=== PATIENT | male | born 1960 | race Caucasian/White ===

== ENCOUNTER → 2018-01-23 | Outpatient (CLI) | payer OTHER | END | disposition home or self-care (01) | LOC: RAH 16:43 | PROVIDERS: ATTEND Nurse Practitioner Family | DX: Z01.810 Encounter for preprocedural cardiovascular examination (principal) | CPT/HCPCS: 71046 ==

== ENCOUNTER 2022-11-02 07:04 | Day surgery (SDC) | payer OTHER ==
[2022-10-31 09:41] LABS: BASOPHILS % (AUTO) 1.5 % (0.0-5.0); EOSINOPHILS % (AUTO) 2.1 % (0.0-8.0); HEMATOCRIT 40.9 % (42-54); LYMPHOCYTES % (AUTO) 29.2 % (21.0-51.0); MEAN CORPUSCULAR HEMOGLOBIN 32.1 pg (27.0-33.0); MEAN CORPUSCULAR HGB CONC 33.7 g/dL (32.0-36.0); MEAN CORPUSCULAR VOLUME 95.1 fL (79-99); NEUTROPHILS % (AUTO) 58.7 % (40.0-77.0); PLATELET COUNT (AUTO) 228 K/uL (130-400); RED CELL DISTRIBUTION WIDTH 13.6 % (11.0-15.5); WHITE BLOOD COUNT (AUTO) 6.1 K/uL (4.8-10.8)
[2022-10-31 09:48] LABS: ALBUMIN 3.4 g/dL (3.5-5.0); CARBON DIOXIDE 28 mmol/L (21-32); CHLORIDE 103 mmol/L (101-111); CREATININE 0.9 mg/dL (0.5-1.5); GLOMERULAR FILTR. RATE CALC 97 mL/min (>90); GLUCOSE,RANDOM 135 mg/dL (70-105); POTASSIUM 4.6 mmol/L (3.5-5.1); SODIUM SERUM 136 mmol/L (136-145); UREA NITROGEN, BLOOD 15 mg/dL (7-18)
[2022-10-31 09:53] LABS: CRP QUANTITATIVE < 2.00 mg/L (0.00-9.0); INR 1.06 (0.85-1.15); PROTHROMBIN TIME 11.5 SEC (9.6-11.6)
[2022-10-31 09:54] LABS: PARTIAL THROMBOPLASTIN TIME 32.2 SEC (26.3-35.5)
[2022-10-31 10:10] VITALS: BP 120/81
[2022-11-02] VITALS (16 sets, daily range): BP systolic 107–139; BP diastolic 63–80
[~2022-11-02] VITALS: Ht 172.7 cm; Wt 116.1 kg
[~2022-11-02 07:04] MED LIST: ALLO100T PO; APIX5TAB PO; DILT120C92 PO; METF-446 PO; METO200T49 PO; OMEG100033 PO; OMEP40CA21 PO
[2022-11-02] MEDS ORDERED: 0.9%NACL 1000ML 1,000 ML IV ONE (07:16)
[2022-11-02] MEDS ORDERED: CEFAZOLIN SODIUM 2 GM VIAL ONE (07:16)
[2022-11-02] MEDS ORDERED: LIDOCAINE PF 100MG/5ML (2%) SYRINGE 5ML ONE (08:50)
[2022-11-02] MEDS ORDERED: ONDANSETRON 4MG INJ ONE (08:51)
[2022-11-02] MEDS ORDERED: DEXAMETHASONE SOD PHOSPHATE 10MG/ML 1ML VIAL ONE (08:51)
[2022-11-02] MEDS ORDERED: NEOSTIGMINE 5MG/5ML SYR IV ONE (08:52)
[2022-11-02] MEDS ORDERED: MIDAZOLAM HCL 1 MG/ML 2ML VIAL ONE (08:52)
[2022-11-02] MEDS ORDERED: GLYCOPYRROLATE 1 MG/5 ML SYRINGE ONE (08:52)
[2022-11-02] MEDS ORDERED: PROPOFOL 10 MG/ML 20ML VIAL IV ONE (08:52)
[2022-11-02] MEDS ORDERED: ROCURONIUM 10MG/1ML SYR 10 MG/ML ML ONE ×3 (08:52→12:18)
[2022-11-02] MEDS ORDERED: FENTANYL CITRATE PF 50 MCG/1 ML 2ML VIAL ONE ×2 (08:53→10:25)
[2022-11-02] MEDS ORDERED: KETOROLAC 30MG VIAL (30MG/ML) ONE (08:53)
[2022-11-02] MEDS ORDERED: ROPIVACAINE 0.5% 5MG/ML 30ML IJ ONE (08:58)
[2022-11-02] MEDS ORDERED: EPINEPHRINE PF 1MG (1:1,000) 1 MG/ML AMP ONE (09:01)
[2022-11-02] MEDS ORDERED: CEFAZOLIN SODIUM 2 GM VIAL IVPB ONE (09:21)
[2022-11-02] MEDS ORDERED: HYDR-4060 PO (13:30)
== END 2022-11-02 14:58 | disposition home or self-care (01) ==
LOC: DAH 07:04
PROVIDERS: ATTEND Student in an Organized Health Care Education/Training Program
DX: M75.122 Complete rotator cuff tear or rupture of left shoulder, not specified as traumatic (principal); Z20.822 Contact with and (suspected) exposure to COVID-19; M19.012 Primary osteoarthritis, left shoulder; M75.22 Bicipital tendinitis, left shoulder; M65.812 Other synovitis and tenosynovitis, left shoulder; M94.212 Chondromalacia, left shoulder; M75.42 Impingement syndrome of left shoulder; I10 Essential (primary) hypertension; E11.9 Type 2 diabetes mellitus without complications; E78.5 Hyperlipidemia, unspecified; G47.30 Sleep apnea, unspecified; K21.9 Gastro-esophageal reflux disease without esophagitis; M10.9 Gout, unspecified; Z79.01 Long term (current) use of anticoagulants; Z79.899 Other long term (current) drug therapy; Z90.49 Acquired absence of other specified parts of digestive tract; Z98.890 Other specified postprocedural states; Z90.81 Acquired absence of spleen; Z82.49 Family history of ischemic heart disease and other diseases of the circulatory system; Z86.010 Personal history of colon polyps; Z72.89 Other problems related to lifestyle; Z79.84 Long term (current) use of oral hypoglycemic drugs
CPT/HCPCS: 82040; 80048; 85025; 85610; 85730; 84134; 86140; 87426; 36415; 29827; 29828; 64415; 29826; 82948 ×2; A4663; J7030 ×2; A4565; A4452; J3010 ×2; J3490; J1100; J2710; J2001; J0171; J2250; J2704; J2405; J1885; J2795; J0690 ×2; A6223; A4649 ×2; C1713 ×2; A5120; A4215; A4223; A4222; A4221; A4600

== ENCOUNTER 2023-06-27 03:33 | Emergency (ER) | payer OTHER ==
[~2023-06-27 03:33] MED LIST changes: +DILT120C78 PO; -DILT120C92 PO; +HYDR-4060 PO
[2023-06-27] MEDS ORDERED: GABAPENTIN 300 MG CAPSULE PO SCH (04:00)
[2023-06-27] MEDS ORDERED: MORPHINE 2 MG SYG IVP ONE (04:00)
[2023-06-27] MEDS ORDERED: CYCLOBENZAPRINE HCL 10 MG TABLET PO ONE (04:00)
[2023-06-27] MEDS ORDERED: HYDROMORPHONE 1 MG INJ IVP ONE (04:30)
[2023-06-27] MEDS ORDERED: GABA300C PO (05:40)
[2023-06-27] MEDS ORDERED: PRED20TA3 PO (05:40)
[2023-06-27] MEDS ORDERED: IBUP-1493 PO (05:40)
[2023-06-27] MEDS ORDERED: TRAM50TA4 PO (05:42)
[2023-06-27 07:01] VITALS: BP 124/74; PULSE 80; RESP 16; O2SAT 98
== END 2023-06-27 07:02 | disposition home or self-care (01) ==
LOC: EDH 03:33
DX: M54.12 Radiculopathy, cervical region (principal); I48.91 Unspecified atrial fibrillation
CPT/HCPCS: 99285; 96374; 72125; 96375; J1170; J2270

== ENCOUNTER 2023-09-04 23:11 | Emergency (ER) | payer OTHER ==
[~2023-09-04] VITALS: Ht 172.7 cm; Wt 114.8 kg
[~2023-09-04 23:11] MED LIST changes: +GABA300C PO; +IBUP-1493 PO; +PRED20TA3 PO; +TRAM50TA4 PO
[2023-09-04 23:14] VITALS: BP 125/82; PULSE 108; RESP 20
[2023-09-04 23:42] LABS: ADD UA MICROSCOPIC YES; APPEARANCE,URINE CLEAR (CLEAR); BILIRUBIN,URINE NEGATIVE (NEGATIVE); COLOR,URINE LIGHT-YELLOW (YELLOW); GLUCOSE, URINE (UA) >=1000 mg/dL (NEGATIVE); KETONES,URINE NEGATIVE (NEGATIVE); LEUKOCYTE ESTERASE ,URINE NEGATIVE Leu/uL (NEGATIVE); NITRATE,URINE NEGATIVE (NEGATIVE); OCCULT BLOOD,URINE NEGATIVE (NEGATIVE); PH,URINE 5.5 (5.0-8.0); PROTEIN,URINE 10 mg/dL (NEGATIVE); UROBILINOGEN,URINE 0.2 mg/dL (0.2-1.0)
[2023-09-04 23:43] LABS: MUCUS,URINE RARE LPF (None Seen); RBC,URINE 0-1 /HPF (0-1); WBC,URINE 0-1 /HPF (0-1)
[2023-09-05] MEDS ORDERED: IBUPROFEN 800 MG TAB ONE (00:18)
[2023-09-05] MEDS ORDERED: CYCLOBENZAPRINE HCL 10 MG TABLET ONE (00:19)
[2023-09-05] MEDS ORDERED: IBUP-1493 PO (00:23)
[2023-09-05] MEDS ORDERED: CYCL-309 PO (00:23)
[2023-09-05] MEDS ORDERED: CYCLOBENZAPRINE HCL 10 MG TABLET PO ONE (00:30)
[2023-09-05] MEDS ORDERED: IBUPROFEN 800 MG TAB PO ONE (00:30)
[2023-09-05] MEDS ORDERED: MORPHINE 2 MG SYG IM ONE (00:30)
== END 2023-09-05 01:07 | disposition home or self-care (01) ==
LOC: EDH 23:11
DX: M25.551 Pain in right hip (principal); M54.9 Dorsalgia, unspecified; I10 Essential (primary) hypertension; E11.9 Type 2 diabetes mellitus without complications; I48.91 Unspecified atrial fibrillation; Z79.84 Long term (current) use of oral hypoglycemic drugs; Z79.899 Other long term (current) drug therapy; Z98.890 Other specified postprocedural states
CPT/HCPCS: 99284; 81001; 73552; 72190; 96372; J2270